=== PATIENT | female | born 1955 | race Caucasian/White ===

== ENCOUNTER → 2017-01-06 | Outpatient (CLI) | payer BC ==
[2017-01-06 09:48] LABS: RED BLOOD COUNT 4.44 M/UL (4.00-5.10); WHITE BLOOD COUNT 5.9 K/UL (4.5-11.0)
[2017-01-06 09:54] LABS: BUN/CREATININE RATIO 15 (0-10)
== END ==
LOC: LAB 09:08
PROVIDERS: Emergency Medicine
DX: R73.01 Impaired fasting glucose (principal)
CPT/HCPCS: 36415; 80053; 80061; 85027

== ENCOUNTER → 2021-12-18 | Outpatient (CLI) | payer BC | LOC: EXRD 10:12 | DX: M54.2 Cervicalgia (principal); M54.16 Radiculopathy, lumbar region; M25.562 Pain in left knee; M47.812 Spondylosis without myelopathy or radiculopathy, cervical region | CPT/HCPCS: 72040; 72100; 73562 ==

== ENCOUNTER → 2022-01-13 | Outpatient (CLI) | payer BC | LOC: MRI 08:19 | DX: G43.109 Migraine with aura, not intractable, without status migrainosus (principal); R29.2 Abnormal reflex; R90.89 Other abnormal findings on diagnostic imaging of central nervous system | CPT/HCPCS: 70551 ==

== ENCOUNTER → 2022-01-20 | Outpatient (CLI) | payer BC | LOC: NM 09:00 | DX: R10.11 Right upper quadrant pain (principal); G89.29 Other chronic pain | CPT/HCPCS: 78227; A9537 ==

== ENCOUNTER → 2022-02-26 | Outpatient (CLI) | payer BC | LOC: EXRD 10:59 | DX: R07.81 Pleurodynia (principal) | CPT/HCPCS: 71101 ==

== ENCOUNTER → 2022-03-19 | Outpatient (CLI) | payer BC | LOC: US 07:40 | DX: R10.11 Right upper quadrant pain (principal); K82.4 Cholesterolosis of gallbladder | CPT/HCPCS: 76705 ==

== ENCOUNTER → 2022-04-23 | Day surgery (SDC) | payer BC ==
[~2022-04-23] MED LIST: ALLEGRA ALLERG180 MG PO; CALCIUM CITRATE PO; COQ-10100 MG PO; HYDROCODON-ACE1 EAC4 PO; METAMUCIL POWD798 GM PO; MULTI-VITAMIN1 EACH PO; PROBIOTIC PO; ST. JOSEPH ASPI81 M1 PO; VIT E PO; VITAMIN B12 PO; VITAMIN D31250 MCG PO
== END | disposition home or self-care (01) ==
LOC: OR 06:04
DX: K81.1 Chronic cholecystitis (principal); D13.5 Benign neoplasm of extrahepatic bile ducts; I10 Essential (primary) hypertension; E78.5 Hyperlipidemia, unspecified; K21.9 Gastro-esophageal reflux disease without esophagitis; Z87.891 Personal history of nicotine dependence; Z79.82 Long term (current) use of aspirin; Z79.899 Other long term (current) drug therapy
CPT/HCPCS: C1729; J0690; J1100; J1885; J2001; J2405; J2704; J3010

== ENCOUNTER → 2022-05-11 | Outpatient (CLI) | payer BC ==
[2022-05-11 10:12] LABS: HEMOGLOBIN 12.9 gm/dl (12.3-15.3); RED BLOOD COUNT 4.33 M/UL (4.00-5.10)
[2022-05-11 12:17] LABS: BUN/CREATININE RATIO 19 (0-10)
[2022-05-12 12:13] LABS: CREATININE, URINE 106.8 mg/dL (Not Estab.)
== END ==
LOC: LAB 09:40
PROVIDERS: Nurse Practitioner Family
DX: R73.9 Hyperglycemia, unspecified (principal); R51.9 Headache, unspecified; G43.909 Migraine, unspecified, not intractable, without status migrainosus; M85.80 Other specified disorders of bone density and structure, unspecified site; E78.5 Hyperlipidemia, unspecified; E53.8 Deficiency of other specified B group vitamins; E55.9 Vitamin D deficiency, unspecified; Z00.00 Encounter for general adult medical examination without abnormal findings
CPT/HCPCS: 36415; 80053; 80061; 82043; 82570; 82607; 83036; 84439; 84443; 85025